=== PATIENT | male | born 1985 | race Caucasian/White ===

== ENCOUNTER 2019-01-11 17:44 | Inpatient (IN) | payer OTHER ==
[2019-01-11 18:33] VITALS: BMI 30.4
--- NOTE | 2019-01-11 19:36 | HP ---
"CIWA Score Nausea/Vomitin-No Nausea/No Vomiting Muscle Tremors: 1-None Visible, but Welcome Anxiety: 5 Agitation: 4-Moderately Restless Paroxysmal Sweats: No Perspiration Orientation: 0-Oriented Tacttile Disturbances: 0-None Auditory Disturbances: 0-None Visual Disturbances: 0-None Headache: 0-None Present CIWA-Ar Total Score: 10 - Admission Criteria OASAS Guidelines: Admission for Medically Managed Detox: Requires at least one of the followin. CIWA greater than 12 2. Seizures within the past 24 hours 3. Delirium tremens within the past 24 hours 4. Hallucinations within the past 24 hours 5. Acute intervention needed for co occurring medical disorder 6. Acute intervention needed for co occurring psychiatric disorder 7. Severe withdrawal that cannot be handled at a lower level of care (continued vomiting, continued diarrhea, abnormal vital signs) requiring intravenous medication and/or fluids 8. Admission ROS [facility] Allergies/Adverse Reactions: Allergies Allergy/AdvReac Type Severity Reaction Status Date / Time No Known Allergies Allergy Verified 01/11/19 18:26 History of Present Illness: Search Terms: shanae pfeiffer, 1985 Search Date: 01/11/2019 07:33:27 PM The Drug Utilization Report below displays all of the controlled substance prescriptions, if any, that your patient has filled in the last twelve months. The information displayed on this report is compiled from pharmacy submissions to the Department, and accurately reflects the information as submitted by the pharmacies. This report was requested by: Ynes Diaz | Reference #: [id number] pt here requesting detox from etoh use , reports 1-2 pints day since a few months ago since being in longterm , reports not feeling well if not drinking , mostly anxiety , denies seizures, blackouts , latest use today , usually starts drinking around 9 or 10 am . Denies current or past SI / HI . cannabis - daily since age 17 , denies periods of sobriety cocaine - on weekends , usually 3 x/week , started use 2 years ago , denies IVDU denies other illicits tobacco ; 1/4 ppd . PMHX : denies PShx : denies Psych : denies meds : denies SHx : denies legal issues, homeless. Exam Limitations: No Limitations - Ebola screening Have you traveled outside of the country in the last 21 days: No (N) Have you had contact with anyone from an Ebola affected area: No Do you have a fever: No - Review of Systems Constitutional: See HPI EENT: reports: No Symptoms Reported Respiratory: reports: No Symptoms reported Cardiac: reports: No Symptoms Reported GI: reports: No Symptoms Reported : reports: No Symptoms Reported Musculoskeletal: reports: No Symptoms Reported Integumentary: reports: No Symptoms Reported Neuro: reports: No Symptoms reported Endocrine: reports: No Symptoms Reported Psychiatric: reports: No Sypmtoms Reported, Orientated x3, Agitated, Anxious Patient History - Smoking Cessation Smoking history: Current every day smoker Have you smoked in the past 12 months: Yes Hx Chewing Tobacco Use: No Initiated information on smoking cessation: No - Substances abused Marijuana/Hashish Substance route: Smoking Frequency: Daily Amount used: daily Age of first use: 17 Date of last use: 01/11/19 Cocaine Substance route: Inhalation Frequency: 1-2 times per week Amount used: 2 grams Age of first use: 28 Date of last use: 01/08/19 Family Disease History - Family Disease History Family History: Denies Other Family History: reports he has no children Admission Physical Exam BHS - Vital Signs Vital Signs: Vital Signs - 24 hr 01/11/19 01/11/19 18:26 19:26 Temperature 97.8 F 97.8 F Pulse Rate 97 H 97 H Respiratory 16 16 Rate Blood Pressure 128/85 128/85 - Physical General Appearance: Yes: Irritable, Anxious HEENTM: Yes: EOMI, Hearing grossly Normal, Normocephalic, Normal Voice Respiratory: Yes: Chest Non-Tender, Lungs Clear, Normal Breath Sounds Neck: Yes: No masses,lesions,Nodules, Trachea in good position Breast: Yes: Breast Exam Deferred Cardiology: Yes: Regular Rhythm, Regular Rate, S1, S2, Tachycardia Abdominal: Yes: Non Tender, Soft Genitourinary: Yes: Within Normal Limits Back: Yes: Normal Inspection Musculoskeletal: Yes: full range of Motion, Gait Steady Extremities: Yes: Normal Range of Motion, Non-Tender, Tremors Neurological: Yes: Fully Oriented, Alert, Motor Strength 5/5, Normal Mood/Affect Integumentary: Yes: Normal Color, Warm - Diagnostic (1) Alcohol abuse Current Visit: Yes Status: Acute (2) Cannabis dependence Current Visit: Yes Status: Chronic (3) Cocaine abuse Current Visit: Yes Status: Chronic (4) Nicotine dependence Current Visit: Yes Status: Chronic Qualifiers: Nicotine product type: cigarettes Urine Drug Screen - Test Device Lot number: [id number] Expiration date: 09/03/20 - Control Is test valid?: Yes - Results Drug screen NEGATIVE: No Urine drug screen results: THC-Marijuana Inpatient Rehab Admission - Rehab Decision to Admit Inpatient rehab admission?: No"
[2019-01-11] MEDS ORDERED: MENTHOL/PHENOL 1 EACH UD MM PRN (19:54)
[2019-01-11] MEDS ORDERED: BISMUTH SUBSALICYLATE 524 MG/30 ML UD PO PRN (19:54)
[2019-01-11] MEDS ORDERED: MAG HYDROX/AL HYDROX/SIMETH 30 ML UNIT-DOSE CUP PO PRN (19:54)
[2019-01-11] MEDS ORDERED: IBUPROFEN 400 MG TABLET (FP) PO PRN (19:54)
[2019-01-11] MEDS ORDERED: ACETAMINOPHEN 325 MG TABLET (FP) PO PRN ×2 (19:54)
[2019-01-11] MEDS ORDERED: MAGNESIUM HYDROX 2400MG/30ML ORAL SUSPENSION 30 ML CUP PO PRN (19:54)
[2019-01-11] MEDS ORDERED: MAGNESIUM CITRATE 300 ML BOTTLE PO PRN (19:54)
[2019-01-11] MEDS ORDERED: NICOTINE POLACRILEX 2 MG GUM BUC PRN (19:54)
[2019-01-11] MEDS ORDERED: diazePAM 5 MG TABLET PO PRN (19:54)
[2019-01-11] MEDS: diazePAM 5 MG TABLET PO SCH (21:05)
[2019-01-11] MEDS: THIAMINE HCL 100 MG TABLET (FP) PO SCH (21:05)
[2019-01-12] MEDS: diazePAM 5 MG TABLET PO SCH ×3 (05:31→22:23)
[2019-01-12 09:54] LABS: HEMOGLOBIN 16.6 GM/dL (11.7-16.9); MCH 31.2 pg (25.7-33.7); MCHC 33.2 g/dl (32.0-35.9); MEAN CELL VOLUME 94.1 fl (80-96); MEAN PLT VOLUME 9.4 fl (7.5-11.1); PLATELET COUNT 259 K/MM3 (134-434); RBC 5.32 M/mm3 (4.00-5.60); RDW 14.1 % (11.9-15.9); WHITE BLOOD COUNT 9.6 K/mm3 (4.0-10.0)
[2019-01-12 10:05] LABS: ALBUMIN 4.3 g/dl (3.4-5.0); ALK PHOS 128 U/L (45-117); ANION GAP 7 MMOL/L (8-16); BLOOD UREA NITROGEN 14 mg/dL (7-18); CALCIUM 9.1 mg/dL (8.5-10.1); CHLORIDE 104 mmol/L (98-107); CO2 28 mmol/L (21-32); CREATININE 1.1 mg/dL (0.55-1.3); GLUCOSE,RANDOM 106 mg/dL (74-106); POTASSIUM 4.3 mmol/L (3.5-5.1); SGOT/AST 27 U/L (15-37); SGPT/ALT 32 U/L (13-61); SODIUM 139 mmol/L (136-145); TOT PROT 8.4 g/dl (6.4-8.2)
[2019-01-12] MEDS: PRENATAL VITAMINS W/ FOLIC ACID TABLET (FP) PO SCH (10:29)
--- NOTE | 2019-01-12 10:52 | PN ---
S CIWA - CIWA Score Nausea/Vomitin-No Nausea/No Vomiting Muscle Tremors: 3 Anxiety: 1-Mildly Anxious Agitation: 2 Paroxysmal Sweats: 1-Minimal Palms Moist Orientation: 1-Uncertain about Date Tacttile Disturbances: 0-None Auditory Disturbances: 0-None Visual Disturbances: 0-None Headache: 0-None Present CIWA-Ar Total Score: 8 S Progress Note (SOAP) Subjective: feeling ok today ambulate on hallway social with peers in day room Objective: 01/12/19 10:54 Vital Signs Temperature 98.4 F 01/12/19 09:02 Pulse Rate 82 01/12/19 09:02 Respiratory Rate 18 01/12/19 09:02 Blood Pressure 127/81 01/12/19 09:02 O2 Sat by Pulse Oximetry (%) Laboratory Last Values WBC 9.6 K/mm3 (4.0-10.0) 01/12/19 07:00 RBC 5.32 M/mm3 (4.00-5.60) 01/12/19 07:00 Hgb 16.6 GM/dL (11.7-16.9) 01/12/19 07:00 Hct 50.0 % (35.4-49) H 01/12/19 07:00 MCV 94.1 fl (80-96) 01/12/19 07:00 MCH 31.2 pg (25.7-33.7) 01/12/19 07:00 MCHC 33.2 g/dl (32.0-35.9) 01/12/19 07:00 RDW 14.1 % (11.9-15.9) 01/12/19 07:00 Plt Count 259 K/MM3 (134-434) 01/12/19 07:00 MPV 9.4 fl (7.5-11.1) 01/12/19 07:00 Sodium 139 mmol/L (136-145) 01/12/19 07:00 Potassium 4.3 mmol/L (3.5-5.1) 01/12/19 07:00 Chloride 104 mmol/L (98-107) 01/12/19 07:00 Carbon Dioxide 28 mmol/L (21-32) 01/12/19 07:00 Anion Gap 7 MMOL/L (8-16) L 01/12/19 07:00 BUN 14 mg/dL (7-18) 01/12/19 07:00 Creatinine 1.1 mg/dL (0.55-1.3) 01/12/19 07:00 Creat Clearance w eGFR 77.58 (>60) 01/12/19 07:00 Random Glucose 106 mg/dL (74-106) 01/12/19 07:00 Calcium 9.1 mg/dL (8.5-10.1) 01/12/19 07:00 Total Bilirubin 1.0 mg/dL (0.2-1) 01/12/19 07:00 AST 27 U/L (15-37) 01/12/19 07:00 ALT 32 U/L (13-61) 01/12/19 07:00 Alkaline Phosphatase 128 U/L (45-117) H 01/12/19 07:00 Total Protein 8.4 g/dl (6.4-8.2) H 01/12/19 07:00 Albumin 4.3 g/dl (3.4-5.0) 01/12/19 07:00 lab noted Assessment: 01/12/19 10:54 alcohol withdrawal sx Plan: continue alcohol detox
[2019-01-12] MEDS: MELATONIN 5 MG TABLETS PO PRN (22:23)
[2019-01-12] MEDS: THIAMINE HCL 100 MG TABLET (FP) PO SCH (22:23)
[2019-01-13] MEDS: PRENATAL VITAMINS W/ FOLIC ACID TABLET (FP) PO SCH (10:05)
[2019-01-13] MEDS: diazePAM 5 MG TABLET PO SCH ×2 (10:05→22:13)
--- NOTE | 2019-01-13 10:35 | PN ---
S CIWA - CIWA Score Nausea/Vomitin-No Nausea/No Vomiting Muscle Tremors: 2 Anxiety: 1-Mildly Anxious Agitation: 1-Slight > Activity Paroxysmal Sweats: No Perspiration Orientation: 0-Oriented Tacttile Disturbances: 0-None Auditory Disturbances: 0-None Visual Disturbances: 0-None Headache: 1-Very Mild CIWA-Ar Total Score: 5 S Progress Note (SOAP) Subjective: ambulating on hallway social with peers discuss aftercare with staff Objective: 01/13/19 10:34 Vital Signs Temperature 97.6 F 01/13/19 09:28 Pulse Rate 96 H 01/13/19 09:28 Respiratory Rate 18 01/13/19 09:28 Blood Pressure 129/80 01/13/19 09:28 O2 Sat by Pulse Oximetry (%) Laboratory Last Values WBC 9.6 K/mm3 (4.0-10.0) 01/12/19 07:00 RBC 5.32 M/mm3 (4.00-5.60) 01/12/19 07:00 Hgb 16.6 GM/dL (11.7-16.9) 01/12/19 07:00 Hct 50.0 % (35.4-49) H 01/12/19 07:00 MCV 94.1 fl (80-96) 01/12/19 07:00 MCH 31.2 pg (25.7-33.7) 01/12/19 07:00 MCHC 33.2 g/dl (32.0-35.9) 01/12/19 07:00 RDW 14.1 % (11.9-15.9) 01/12/19 07:00 Plt Count 259 K/MM3 (134-434) 01/12/19 07:00 MPV 9.4 fl (7.5-11.1) 01/12/19 07:00 Sodium 139 mmol/L (136-145) 01/12/19 07:00 Potassium 4.3 mmol/L (3.5-5.1) 01/12/19 07:00 Chloride 104 mmol/L (98-107) 01/12/19 07:00 Carbon Dioxide 28 mmol/L (21-32) 01/12/19 07:00 Anion Gap 7 MMOL/L (8-16) L 01/12/19 07:00 BUN 14 mg/dL (7-18) 01/12/19 07:00 Creatinine 1.1 mg/dL (0.55-1.3) 01/12/19 07:00 Creat Clearance w eGFR 77.58 (>60) 01/12/19 07:00 Random Glucose 106 mg/dL (74-106) 01/12/19 07:00 Calcium 9.1 mg/dL (8.5-10.1) 01/12/19 07:00 Total Bilirubin 1.0 mg/dL (0.2-1) 01/12/19 07:00 AST 27 U/L (15-37) 01/12/19 07:00 ALT 32 U/L (13-61) 01/12/19 07:00 Alkaline Phosphatase 128 U/L (45-117) H 01/12/19 07:00 Total Protein 8.4 g/dl (6.4-8.2) H 01/12/19 07:00 Albumin 4.3 g/dl (3.4-5.0) 01/12/19 07:00 RPR Titer Nonreactive (NONREACTIVE) 01/12/19 07:00 lab noted Assessment: 01/13/19 10:34 mild alcohol withdrawal sx Plan: continue detox
[2019-01-13] MEDS: MELATONIN 5 MG TABLETS PO PRN (22:12)
[2019-01-13] MEDS: THIAMINE HCL 100 MG TABLET (FP) PO SCH (22:12)
[2019-01-14] MEDS ORDERED: diazePAM 5 MG TABLET PO SCH (06:00)
[2019-01-14 06:01] VITALS: BP 128/87; PULSE 71; TEMP 97.6
--- NOTE | 2019-01-14 19:03 | DS ---
[facility] Detox Discharge Summary Admission Date: 01/11/19 Discharge Date: 01/14/19 - History Present History: Alcohol Dependence, Cannabis Dependence, Cocaine Dependence Additional Comments: PATIENT GOING TO [facility] ([place], [place]) FOR AFTERCARE. PATIENT WAS DISCHARGED FROM DETOX UNIT IN STABLE MEDICAL CONDITION. Pertinent Past History: Nicotine Dependence. - Physical Exam Results Vital Signs: Vital Signs Temperature 97.6 F 01/14/19 06:01 Pulse Rate 71 01/14/19 06:01 Respiratory Rate 18 01/14/19 06:01 Blood Pressure 128/87 01/14/19 06:01 O2 Sat by Pulse Oximetry (%) Pertinent Admission Physical Exam Findings: WITHDRAWAL SYMPTOMS. Laboratory Tests 01/12/19 01/12/19 01/12/19 07:00 07:00 07:00 WBC 9.6 RBC 5.32 Hgb 16.6 Hct 50.0 H MCV 94.1 MCH 31.2 MCHC 33.2 RDW 14.1 Plt Count 259 MPV 9.4 Sodium 139 Potassium 4.3 Chloride 104 Carbon Dioxide 28 Anion Gap 7 L BUN 14 Creatinine 1.1 Creat Clearance w eGFR 77.58 Random Glucose 106 Calcium 9.1 Total Bilirubin 1.0 AST 27 ALT 32 Alkaline Phosphatase 128 H Total Protein 8.4 H Albumin 4.3 RPR Titer Nonreactive LABS NOTED. - Treatment Hospital Course: Detox Protocol Followed, Detoxed Safely, Responded well, Discharged Condition Good, Rehab Referral Accepted Patient has Accepted a Rehab Referral to: [facility] ([place], [place]). - Medication Discharge Medications: Ambulatory Orders NK [No Known Home Medication] 01/11/19 - Diagnosis (1) Alcohol abuse Status: Acute (2) Cannabis dependence Status: Chronic (3) Cocaine abuse Status: Chronic (4) Nicotine dependence Status: Chronic Qualifiers: Nicotine product type: cigarettes Substance use status: uncomplicated Qualified Code(s): F17.210 - Nicotine dependence, cigarettes, uncomplicated - AMA Did Patient Leave Against Medical Advice: No
== END 2019-01-14 09:38 | disposition home or self-care (01) | DRG 774 ==
LOC: YASAS 17:44 → Y3N 20:02
PROVIDERS: ADMIT Surgery; ATTEND Surgery
PROC: HZ2ZZZZ Detoxification Services for Substance Abuse Treatment (ICD-10-PCS; principal; 2019-01-11)
DX: F10.230 Alcohol dependence with withdrawal, uncomplicated (principal); F12.20 Cannabis dependence, uncomplicated; F14.10 Cocaine abuse, uncomplicated; F17.210 Nicotine dependence, cigarettes, uncomplicated; R00.0 Tachycardia, unspecified
CPT/HCPCS: 36415; 80053; 85027; 86593